=== PATIENT | male | born 1980 | race Two or more races ===

== ENCOUNTER 2018-04-30 12:34 | Emergency (ER) | payer OTHER ==
[2018-04-30 12:51] VITALS: BP 162/83
[2018-04-30] MEDS ORDERED: IBUPROFEN 600 MG TAB PO ONE (13:06)
[2018-04-30] MEDS ORDERED: ACETAMINOPHEN 500 MG TAB PO ONE (13:07)
--- NOTE | 2018-04-30 13:07 | EDPHY ---
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 He inverted his right ankle with lateral ankle pain and swelling since that time 8/10 intensity currently. The incident occurred a 30 this morning. He felt a pop when it occurred. He also reports mild pain to the posterior to/Achilles region of the ankle. He has not had any medications for the pain so far. He came in by private vehicle. ROS: Constitutional: No complaints Neuro: No numbness or tingling. No head injury Musculoskeletal: No other injuries from the fall. No midline neck or back pain. No foot pain associated with this. Integumentary: No lacerations abrasions 5 point review of symptoms is performed and otherwise negative with exception of pertinent positives and negatives listed in HPI and ROS Smoking Status: Former smoker Physical Exam: Physical Exam Vital signs are normal. General: No acute distress HEENT: Atraumatic. Eyes: Pupils equal and react to light. Extraocular motions are intact. Lungs: No respiratory distress. Cardiac: Brisk capillary refill is intact throughout. Pulses are 2+ and symmetric in the affected extremity. Skin: No rash or pallor. Extremities: Atraumatic except for right ankle Right ankle: Patient has moderate lateral swelling with associated tenderness. No significant medial tenderness. No significant Achilles tenderness. No laxity is appreciated on anterior drawer. Has no foot swelling or tenderness Neuro: Alert and oriented x3 with no sensorimotor deficits in the affected extremity. Initial differential diagnosis: Ankle sprain, ankle fracture, traumatic hematoma Constitutional: Initial Vital Signs Temperature (C) 37.7 C 04/30/18 12:44 Heart Rate 117 H 04/30/18 12:44 Respiratory Rate 18 04/30/18 12:44 Blood Pressure 162/83 H 04/30/18 12:44 O2 Sat (%) 94 04/30/18 12:44 O2 Delivery Mode Room Air Allergies/Adverse Reactions: No Known Allergies Allergy (Unverified 04/30/18 12:44) Home Medications: Medication Instructions Recorded Ibuprofen [Motrin (*)] 600 mg PO Q6 PRN #30 tab 04/30/18 MDM/Departure - MDM Imaging Results: Imaging Impressions Ankle X-Ray 04/30/18 12:42 Impression: Acute ankle sprain with lateral soft tissue swelling. Small remote avulsion from the undersurface of the medial malleolus. Three-view ankle x-rays: Negative for acute fracture by my interpretation Medications Given: Discontinued Medications Acetaminophen (Tylenol) 1,000 mg PO EDNOW ONE Stop: 04/30/18 13:08 Last Admin: 04/30/18 13:20 Dose: 1,000 mg Ibuprofen (Motrin) 600 mg PO EDNOW ONE Stop: 04/30/18 13:07 Last Admin: 04/30/18 13:20 Dose: 600 mg ED Course/Re-evaluation: Patient's findings are consistent with lateral ankle sprain to the anterior talofibular ligament I counseled patient regarding ankle sprain and demonstrated ankle rehab exercises. He is placed in a Velcro stirrup splint by our tech. He is fitted with crutches. We explained crutch use him. - Depart Disposition: Home, Routine, Self-Care Clinical Impression: Ankle sprain Qualifiers: Encounter type: initial encounter Involved ligament of ankle: anterior talofibular ligament Laterality: right Qualified Code(s): S93.491A - Sprain of other ligament of right ankle, initial encounter Condition: Good Instructions: Ankle Sprain (ED) Additional Instructions: Diagnosis: Ankle sprain Plan: Ibuprofen-400 600 mg per 6 hours as needed for pain and swelling. Ice 20 minutes at a time 3 times a day or more for the next few days. Stirrup splint whenever you're up and about until your symptoms resolve. Tylenol in addition if needed for pain. Use crutches initially until it no longer hurts to bear weight. Then start your ankle rehabilitation exercises to include "the alphabet", gentle ankle stretches in the 4 directions, and then manual resistance strengthening exercises in the 4 directions daily for the next several months. Call the work comp clinic to arrange follow-up appointment for recheck in 2-3 days. Stand Alone Forms: Work Excuse Prescriptions: Ibuprofen [Motrin (*)] 600 mg PO Q6 PRN #30 tab PRN Reason: Pain Referrals: NONE *PRIMARY CARE P,. [Primary Care Provider] - As per Instructions Joanne Castellanos MD [Medical Doctor] - As per Instructions
== END 2018-04-30 13:27 | disposition home or self-care (01) ==
LOC: CED 12:34
DX: S93.491A Sprain of other ligament of right ankle, initial encounter (principal); W00.0XXA Fall on same level due to ice and snow, initial encounter; Y92.410 Unspecified street and highway as the place of occurrence of the external cause; Y99.0 Civilian activity done for income or pay
CPT/HCPCS: 73610-PO; 99283-ER; L4350-ER